=== PATIENT | female | born 1995 | race Caucasian/White ===

== ENCOUNTER 2016-12-21 23:23 | Emergency (ER) | payer MEDICAID ==
[~2016-12-21] VITALS: Ht 165.1 cm; Wt 104.5 kg
[2016-12-22 04:00] VITALS: BP 124/74
== END 2016-12-22 04:37 | disposition home or self-care (01) ==
LOC: EMS 23:24
DX: N76.0 Acute vaginitis (principal); Z91.013 Allergy to seafood
CPT/HCPCS: 99283

== ENCOUNTER 2016-12-23 05:37 | Emergency (ER) | payer MEDICAID ==
[~2016-12-23] VITALS: Ht 165.1 cm; Wt 104.5 kg
[2016-12-23 06:32] VITALS: BP 127/66
== END 2016-12-23 06:42 | disposition home or self-care (01) ==
LOC: EMS 05:39
DX: N76.2 Acute vulvitis (principal); Z91.013 Allergy to seafood
CPT/HCPCS: 99283

== ENCOUNTER 2023-09-14 18:22 | Emergency (ER) | payer OTHER ==
[~2023-09-14] VITALS: Ht 165.1 cm; Wt 113.6 kg
[2023-09-14 18:32] VITALS: TEMP 98.2
[2023-09-14] MEDS ORDERED: SODIUM CHLORIDE 0.9% 1,000 ML IV ONE ×2 (20:30→21:45)
[2023-09-14 20:49] VITALS: BP 135/66; PULSE 74; RESP 18
[2023-09-14 21:41] LABS: APPEARANCE,URINE CLEAR (CLEAR); BILIRUBIN,URINE NEGATIVE (NEGATIVE); COLOR,URINE LIGHT YELLOW (YELLOW); GLUCOSE, URINE (UA) >=1000 mg/dL (NEGATIVE); KETONES,URINE NEGATIVE (NEGATIVE); LEUKOCYTE ESTERASE ,URINE NEGATIVE (NEGATIVE); NITRATE,URINE NEGATIVE (NEGATIVE); OCCULT BLOOD,URINE NEGATIVE (NEGATIVE); PH,URINE 5.5 (5.0-8.0); PROTEIN,URINE NEGATIVE (NEGATIVE); UROBILINOGEN,URINE <=1.0 mg/dL (<=1.0)
[2023-09-14 21:54] LABS: RBC,URINE None Seen /HPF (0-2)
[2023-09-14 21:56] LABS: BACTERIA,URINE Moderate /HPF (None Seen)
[2023-09-14] MEDS ORDERED: CEPH-558 PO (22:04)
[2023-09-14 22:36] LABS: GLUCOMETER DEV NAME(LOC) ER.6; GLUCOSE,POINT OF CARE 218 MG/DL (70-110)
[2023-09-14] MEDS ORDERED: CEPHALEXIN MONOHYDRATE 500 MG CAPSULE PO ONE (22:45)
== END 2023-09-14 23:33 | disposition home or self-care (01) ==
LOC: EMS 18:23
DX: O26.91 Pregnancy related conditions, unspecified, first trimester (principal); R82.71 Bacteriuria; R73.9 Hyperglycemia, unspecified; Z98.890 Other specified postprocedural states; Z3A.00 Weeks of gestation of pregnancy not specified
CPT/HCPCS: 99283; 96360; 96361; 81001; 82962; 84703; 87086; 87186; J7030

== ENCOUNTER 2025-06-22 21:32 | Emergency (ER) | payer OTHER ==
[~2025-06-22] VITALS: Ht 165.1 cm; Wt 110.5 kg
[~2025-06-22 21:32] MED LIST: CEPH-558 PO
[2025-06-22 22:05] VITALS: BP 144/79; PULSE 81; RESP 16; TEMP 98.2; O2SAT 100
== END 2025-06-22 23:22 | disposition left against medical advice (07) ==
LOC: EMS 21:33
DX: M79.89 Other specified soft tissue disorders (principal); Z53.21 Procedure and treatment not carried out due to patient leaving prior to being seen by health care provider